=== PATIENT | female | born 1955 | race Caucasian/White ===

== ENCOUNTER 2017-08-19 12:44 | Emergency (ER) | payer OTHER ==
[~2017-08-19] VITALS: Ht 160 cm; Wt 73.9 kg
== END 2017-08-19 18:41 | disposition home or self-care (01) ==
LOC: ER 12:44
DX: R53.1 Weakness (principal); E86.0 Dehydration

== ENCOUNTER → 2017-08-20 | Emergency (ER) | payer OTHER ==
[~2017-08-20] VITALS: Ht 157.5 cm; Wt 73.9 kg
== END | disposition home or self-care (01) ==
LOC: ER 11:15
DX: R53.1 Weakness (principal); E86.0 Dehydration

== ENCOUNTER → 2017-08-24 | Outpatient (CLI) | payer OTHER | END | disposition home or self-care (01) | LOC: NUCLEAR 08:45 | DX: I10 Essential (primary) hypertension (principal); I25.10 Atherosclerotic heart disease of native coronary artery without angina pectoris; R07.89 Other chest pain ==

== ENCOUNTER 2024-01-07 10:12 | Emergency (ER) | payer OTHER ==
[~2024-01-07] VITALS: Ht 165.1 cm; Wt 79.4 kg
[2024-01-07] MEDS ORDERED: GLUMETZA500 MG (10:46)
[2024-01-07] MEDS ORDERED: KAPSPARGO SPRIN25 MG (10:46)
== END 2024-01-07 12:02 | disposition home or self-care (01) ==
LOC: ER 10:12 → EDBD 10:35 → ER 12:02
DX: B07.9 Viral wart, unspecified (principal)